=== PATIENT | female | born 1950 | race African-American/Black ===

== ENCOUNTER 2019-01-02 08:33 | Day surgery (SDC) | payer BC, OTHER ==
[2019-01-02 09:47] VITALS: BMI 26.4
[2019-01-02 12:55] VITALS: TEMP 97.5
[2019-01-02 13:43] VITALS: BP 125/75; PULSE 69
--- NOTE | 2019-01-05 18:31 | PATH ---
Surgical Pathology Report Patient Name: AVERY CAM [facility]. Rec. #: [id number] /Age/Gender: 1950 (Age: 68) / F Account: [id number] Location: [facility]-ENDOSCOPY Taken: 01/02/2019 Received: 01/02/2019 Reported: 01/05/2019 Physicians: Dalila Abdullahi M.D. Specimen(s) Received RECTUM POLYP Clinical History Colonoscopy screening Postoperative diagnosis: Colon polyp and diverticulosis Final Diagnosis RECTUM, POLYP, POLYPECTOMY: TUBULAR ADENOMA. Electronically Signed Gerda Donovan M.D. Gross Description Received in formalin, labeled "rectum polyp" is a rocha, irregular portion of soft tissue measuring 0.6 cm. in greatest dimension. The specimen is submitted in toto in one cassette. 01/02/201901/02/2019
== END 2019-01-02 14:15 | disposition home or self-care (01) ==
LOC: JASU-ENDO 08:33
PROVIDERS: ATTEND Internal Medicine Gastroenterology
PROC: 0DBP8ZX Excision of Rectum, Via Natural or Artificial Opening Endoscopic, Diagnostic (ICD-10-PCS; principal; 2019-01-02 10:15)
DX: Z12.11 Encounter for screening for malignant neoplasm of colon (principal); Z80.0 Family history of malignant neoplasm of digestive organs; K62.1 Rectal polyp; K64.8 Other hemorrhoids; K57.30 Diverticulosis of large intestine without perforation or abscess without bleeding
CPT/HCPCS: 88305-TC

== ENCOUNTER 2019-04-17 10:15 | Day surgery (SDC) | payer BC, OTHER ==
[2019-04-16 16:51] VITALS: BMI 26.9
[2019-04-17] MEDS ORDERED: ACETAMINOPHEN INJECTION 100 ML IVPB ONE (12:27)
[2019-04-17] MEDS ORDERED: CEFAZOLIN 1 GM/D5W 1 GM/50 ML BAG IVPB ONE (12:30)
[2019-04-17] MEDS ORDERED: ACETAMINOPHEN 1000 MG/100 ML VIAL (NON FORMULARY) IVPB ONE (12:30)
[2019-04-17 13:34] VITALS: TEMP 98
[2019-04-17] MEDS ORDERED: ceFAZolin SODIUM 1 GM VIAL IVPB ONE (13:45)
[2019-04-17] MEDS ORDERED: CEFAZOLIN 1 GM/D5W 1 GM/50 ML BAG ONE (13:46)
[2019-04-17 14:42] VITALS: BP 141/84; PULSE 80
--- NOTE | 2019-04-20 16:57 | PATH ---
Surgical Pathology Report Patient Name: AVERY CAM [facility]. Rec. #: [id number] /Age/Gender: 1950 (Age: 69) / F Account: [id number] Location: [facility]-ENDOSCOPY Taken: 04/17/2019 Received: 04/17/2019 Reported: 04/20/2019 Physicians: Dalila Abdullahi M.D. Specimen(s) Received ANTRAL ULCER Clinical History Carcinoma of the malignant esophageal neoplasm Preop PEG insertion, antral gastritis, ulcer Postoperative diagnosis: Antral ulcer status post PEG insertion Final Diagnosis STOMACH, ANTRAL ULCER, BIOPSY: GASTRIC ANTRAL MUCOSA WITH SEVERE CHRONIC ACTIVE GASTRITIS. IMMUNOHISTOCHEMICAL STAIN FOR H. PYLORI IS POSITIVE (MANY). Positive and negative controls (internal if applicable) show appropriate results. Electronically Signed Gerda Donovan M.D. Gross Description Received in formalin, labeled "biopsy antral ulcer" are 2 rocha, irregular portions of soft tissue measuring 0.1 and 0.4 cm. in greatest dimension. The specimens are submitted in toto in one cassette. 04/17/2019 [facility]04/17/2019
== END 2019-04-17 14:30 | disposition home or self-care (01) ==
LOC: JASU-ENDO 10:15 → JOR 10:15 → JASU-ENDO 14:30
PROVIDERS: ATTEND Internal Medicine Gastroenterology
PROC: 0DB68ZX Excision of Stomach, Via Natural or Artificial Opening Endoscopic, Diagnostic (ICD-10-PCS; 2019-04-17)
PROC: 0DH63UZ Insertion of Feeding Device into Stomach, Percutaneous Approach (ICD-10-PCS; principal; 2019-04-17 11:00)
DX: Z43.1 Encounter for attention to gastrostomy (principal); K29.50 Unspecified chronic gastritis without bleeding; K25.9 Gastric ulcer, unspecified as acute or chronic, without hemorrhage or perforation; B96.81 Helicobacter pylori [H. pylori] as the cause of diseases classified elsewhere; I10 Essential (primary) hypertension; E78.5 Hyperlipidemia, unspecified; Z80.0 Family history of malignant neoplasm of digestive organs; D56.3 Thalassemia minor; K44.9 Diaphragmatic hernia without obstruction or gangrene
CPT/HCPCS: 88305-TC; 88342-TC; J0131